=== PATIENT | female | born 1975 | race Two or more races ===

== ENCOUNTER 2025-05-10 11:28 | Emergency (ER) | payer MEDICAID ==
[~2025-05-10] VITALS: Ht 162.6 cm; Wt 91.3 kg
[2025-05-10 11:38] VITALS: TEMP 98.2
--- NOTE | 2025-05-10 12:01 | ED.PDOC ---
Musculoskeletal HPI Comments 49 year old female presents to the ED for the c/c of an Left Forearm Rash. Pt states that something "bit" her, but cannot recall exactly insect. Pt is noted to have a rash to the posterior aspect of the forearm, and spreads to the elbow at this time. No other associated symptoms or modifiers at this point in time. Chief Complaint: Upper Extremity Time Seen by MD: 11:57 Reviewed Notes: Nurses Notes, Medications, Allergies Allergies: Coded Allergies: NO KNOWN ALLERGIES (Unverified , 05/10/25) Home Meds Active Scripts Clindamycin Hcl (CLEOCIN) 150 Mg Cap, 1 CAP PO TID, #30 CAP Prov:ANKIT CASTILLO MD 05/10/25 Information Source: Patient Mode of Arrival: Ambulatory Location: Left Extremity Location: Elbow, Forearm Timing: Hours Prehospital treatment: None Severity: Mild Able to Move Extremity: Yes Bear Weight: Fully Pain: Mild Hand Dominance: Right Mechanism: None Circumstances: Spontaneous Onset of Symptoms: Spontaneous Symptoms: Swelling, Erythema, Warmth DVT Risk Factors: NONE Last Tetanus: Unknown Associated signs and symptoms: Other (Rash) Past Medical History PAST MEDICAL HISTORY: Denies Surgical History (Other): Nathanael Villavicencio COMMUTATOR ASSEMBLER History: No Pertinent COMMUTATOR ASSEMBLER History Family History Family History: Reviewed,noncontributory to illness, No family hx of Cancer, No family hx of DM, No family hx of Heart [place], No family hx of HTN, No family hx ofKidney [place], No family hx of Liver [place], No family hx of Lung [place], No family hx of Stroke Social History Smoker: Non-Smoker Alcohol: Denies ETOH Use Drugs: Denies Drug Use Lives In: Home Constitutional: denies: chills, diaphoresis, fatigue, fever, malaise, sweats, weakness, others EENTM: denies: blurred vision, double vision, ear bleeding, ear discharge, ear drainage, ear pain, ear ringing, eye pain, eye redness, hearing loss, mouth pain, mouth swelling, nasal discharge, nose bleeding, nose congestion, nose pain, photophobia, tearing, throat pain, throat swelling, voice changes, others Respiratory: denies: cough, hemoptysis, orthopnea, SOB at rest, shortness of breath, SOB with excertion, stridor, wheezing, others Cardiovascular: denies: chest pain, dizzy spells, diaphoresis, Dyspnea on exertion, edema, irregular heart beat, left arm pain, lightheadedness, palpitations, PND, syncope, others Gastrointestinal: denies: abdomen distended, abdominal pain, blood streaked bowels, constipated, diarrhea, dysphagia, difficulty swallowing, hematemesis, melena, nausea, poor appetite, poor fluid intake, rectal bleeding, rectal pain, vomiting, others Genitourinary: denies: abnormal vagina bleeding, burning, dyspareunia, dysuria, flank pain, frequency, hematuria, incontinence, pain, , vagina discharge, urgency, others Neurological: denies: dizziness, fainting, headache, left sided numbness, left sided weakness, numbness, paresthesia, pre-existing deficit, right sided numbness, right sided weakness, seizure, speech problems, tingling, tremors, weakness, others Musculoskeletal: denies: back pain, gout, joint pain, joint swelling, muscle pain, muscle stiffness, neck pain, others Integumetry: reports: rash; denies: bruises, change in color, change in hair/nails, dryness, laceration, lesions, lumps, wounds, others Allergic/Immunocompromised: denies: Difficulty Healing, Frequent Infections, Hives, Itching, others Hematologic/Lymphatic: denies: anemia, blood clots, easy bleeding, easy bruising, swollen glands, others Endocrine: denies: excessive hunger, excessive sweating, excessive thirst, excessive urination, flushing, intolerance to cold, intolerance to heat, unexplained weight gain, unexplained weight loss, others Psychiatric: denies: anxiety, bipolar disorder, depression, hopeless, panic disorder, schizophrenia, sleepless, suicidal, others All Other Systems: Reviewed and Negative Physical Exam General Appearance: Mild Distress HEENT: Normal ENT Inspection, Pharynx Normal, TMs Normal Neck: Full Range of Motion, Non-Tender, Normal, Normal Inspection Respiratory: Chest Non-Tender, Lungs Clear, No Accessory Muscle Use, No Respiratory Distress, Normal Breath Sounds Cardiovascular: No Edema, No JVD, No Murmur, No Gallop, Normal Peripheral Pulse s, Regular Rate/Rhythm Breast Exam: Deferred Gastrointestinal: No Organomegaly, Non Tender, No Pulsatile Mass, Normal Bowel Sounds, Soft Genitalia: Deferred Pelvic: Deferred Rectal: Deferred Extremities: No calf tenderness, Normal capillary refill, Normal inspection, Normal range of motion, Non-tender, No pedal edema Musculoskeletal : Apperance: Normal Neurologic: Alert, nutrition assistant II-XII nml as Tested, No Motor Deficits, No Sensory Deficits, Other (Tenderness to the left upper extremity) Cerebellar Function: Normal Reflexes: Normal Skin: Dry, Rash, Warm Lymphatic: No Adenopathy Was a procedure done? Was a procedure done?: No Differential Diagnosis EXT Differential Diagnosis: Cellulitis, Septic, Bursitis X-Ray, Labs, Meds, VS Vital Signs Date Time Temp Pulse Resp B/P (MAP) Pulse Ox O2 Delivery O2 Flow Rate FiO2 05/10/25 14:19 67 18 117/71 (86) 100 05/10/25 14:19 66 18 100 Room Air 05/10/25 12:18 Room Air* 0 21 05/10/25 11:38 98.2 89 18 128/66 (86) 98 98.2 Lab Test 05/10/25 13:22 05/10/25 11:46 Range/Units White Blood Count 7.0 4.4-10.8 10^3/uL Red Blood Count 4.70 4.0-5.20 10^6/uL Hemoglobin 12.6 12.2-16.2 g/dL Hematocrit 37.6 36.0-46.0 % Mean Corpuscular Volume 80.0 80.0-100.0 fL Mean Corpuscular Hemoglobin 26.9 L 28.0-32.0 pg Mean Corpuscular Hemoglobin Concent 33.7 32.0-36.0 g/dL Red Cell Distribution Width 15.7 H 11.8-14.3 % Platelet Count 193 140-450 10^3/uL Mean Platelet Volume 9.3 6.9-10.8 fL Neutrophils (%) (Auto) 63.6 37.0-80.0 % Lymphocytes (%) (Auto) 23.2 10.0-50.0 % Monocytes (%) (Auto) 11.6 0.0-12.0 % Eosinophils (%) (Auto) 0.7 0.0-7.0 % Basophils (%) (Auto) 0.9 0.0-2.0 % Neutrophils # (Auto) 4.4 1.6-8.6 10 ^3/uL Lymphocytes # (Auto) 1.6 0.4-5.4 10 ^3/uL Monocytes # (Auto) 0.8 0-1.3 10 ^3/uL Eosinophils # (Auto) 0.1 0-0.8 10 ^3/uL Basophils # (Auto) 0.1 0-0.2 10 ^3/uL Nucleated Red Blood Cells 0.1 % Erythrocyte Sedimentation Rate Pending Urine Color Light-yellow Yellow Urine Clarity Turbid H Clear Urine pH 6.5 5.0-9.0 Urine Specific [place] 1.009 1.001-1.035 Urine Protein Negative Negative Urine Ketones Negative Negative Urine Blood 3+ H Negative /uL Urine Nitrite Negative Negative Urine Bilirubin Negative Negative Urine Urobilinogen Normal Negative mg/dL Urine Leukocyte Esterase Negative Negative /uL Urine RBC 30 0 - 4 /hpf Urine Microscopic WBC 2 0-5 /HPF Urine Squamous Epithelial Cells Few <5 /hpf Urine Bacteria None seen None Seen /hpf Urine Glucose Normal Normal mg/dL Impression: No sonographic evidence of left upper extremity deep venous thrombosis. The urine test is negative for infection at this time The patient's CBC is within normal limits The patient is being started on Cleocin for a left arm cellulitis The patient will return to the emergency department's condition worsens The patient understands and agrees with the management. Images Reviewed?: Images reviewed and evaluated by me Time of 1ST Reevaluation: 12:28 Reevaluation 1ST: Unchanged Patient Education/Counseling: Diagnosis, Treatment, Prognosis, Need For Follow Up Family Education/Counseling: No Family Present Departure 1 Departure Time of Disposition: 14:37 Impression: Primary Impression: Left arm cellulitis Disposition: 01 HOME / SELF CARE / HOMELESS Condition: Fair e-Prescriptions Clindamycin Hcl (CLEOCIN) 150 Mg Cap 1 CAP PO TID, #30 CAP Prov: ANKIT CASTILLO MD 05/10/25 Discharged With: Self Critical Care Note Critical Care Time?: No Stability Stability form required: No Heart Score Heart Score: Heart Score Response (Comments) Value History N/A 0 EKG N/A 0 Age N/A 0 Risk Factors N/A 0 Troponin N/A 0 Total 0 I personally scribed for ANKIT CASTILLO MD ([email or web address]) on 05/10/25 at 12:01. Electronically submitted by Zak Gutierrez ([email or web address]). I personally scribed for ANKIT CASTILLO MD ([email or web address]) on 05/10/25 at 13:11. Electronically submitted by Zak Gutierrez ([email or web address]). ANKIT CASTILLO MD May 10, 2025 12:01
--- NOTE | 2025-05-10 13:09 | DVH ---
Procedure: US LT Upper DVT Study Date and Requested Time: 05/10/2025 12:39 PM History: swelling and redness Comparison: None Technique: Multiple high resolution grayscale images with and without compression obtained of the lef t upper extremity veins, including the internal jugular, subclavian, axillary, brachial, radial, and ulnar veins. Augmentation performed as indicated. Color and spectral doppler flow images obtained as indicated. Findings: No visible intraluminal venous thrombus. No evidence of incompressibility or abnormal color or spectr al Doppler flow visualized in the left upper extremity veins including the internal jugular, subclavi an, axillary, brachial, radial, and ulnar veins. Impression: No sonographic evidence of left upper extremity deep venous thrombosis.
[2025-05-10 13:15] LABS: Urine Bacteria None Seen /hpf (None Seen)
[2025-05-10 13:27] LABS: Urine Clarity Turbid (Clear); Urine Color Light-Yellow (Yellow); Urine Specific Gravity 1.009 (1.001-1.035)
[2025-05-10 13:28] LABS: Urine Blood 3+ /uL (Negative); Urine Protein, UAD Negative (Negative); Urine Squamous Epithelial Cell FEW /hpf (<5); Urine Urobilinogen Normal (Negative); Urine WBC 2 /HPF (0-5); Urine pH 6.5 (5.0-9.0)
[2025-05-10 13:42] LABS: Basophils # (auto) 0.1 10 ^3/uL (0-0.2); Eosinophils # (auto) 0.1 10 ^3/uL (0-0.8); Hemoglobin 12.6 g/dL (12.2-16.2); Lymphocytes # (auto) 1.6 10 ^3/uL (0.4-5.4); Mean Corpuscular Hemoglobin 26.9 pg (28.0-32.0); Monocytes # (auto) 0.8 10 ^3/uL (0-1.3); Nucleated Red Blood Cells % 0.1 %
[2025-05-10 13:44] LABS: Basophils % (auto) 0.9 % (0.0-2.0); Eosinophils % (auto) 0.7 % (0.0-7.0); Hematocrit 37.6 % (36.0-46.0); Lymphocytes % (auto) 23.2 % (10.0-50.0); Mean Corpuscular Hgb Conc. 33.7 g/dL (32.0-36.0); Monocytes % (auto) 11.6 % (0.0-12.0); Neutrophils # (auto) 4.4 10 ^3/uL (1.6-8.6); Neutrophils % (auto) 63.6 % (37.0-80.0); Platelet Count (auto) 193 10^3/uL (140-450); Red Cell Distribution Width 15.7 % (11.8-14.3)
[2025-05-10 14:19] VITALS: BP 117/71; PULSE 66; RESP 18; O2SAT 100
[2025-05-10] MEDS ORDERED: CLIN150C PO (14:39)
[2025-05-10 14:41] LABS: Erythrocyte Sedimentation Rate 53 mm/hr (0-20)
[2025-05-10] MEDS ORDERED: CLINDAMYCIN HCL 150 MG CAP PO ONE (14:45)
== END 2025-05-10 14:45 | disposition home or self-care (01) ==
LOC: ER 11:28
DX: L03.114 Cellulitis of left upper limb (principal)
CPT/HCPCS: 36415; 81001; 85025; 85652; 93971

== ENCOUNTER 2025-09-06 17:01 | Emergency (ER) | payer MEDICAID ==
[~2025-09-06] VITALS: Ht 162.6 cm; Wt 96.2 kg
[~2025-09-06 17:01] MED LIST: CLIN150C PO
[2025-09-06 18:57] LABS: Hematocrit 40.5 % (36.0-46.0); Hemoglobin 13.5 g/dL (12.2-16.2); Mean Corpuscular Hemoglobin 27.5 pg (28.0-32.0); Mean Corpuscular Volume 82.5 fL (80.0-100.0); Nucleated Red Blood Cells % 0.2 %
[2025-09-06 19:01] LABS: Chloride 105 mmol/L (98-107); Potassium 4.1 mmol/L (3.5-5.1); Sodium 144 mmol/L (136-145)
[2025-09-06 19:02] LABS: Anion Gap 9 (5-15); Calcium 9.6 mg/dL (8.7-10.4); Carbon Dioxide 30 mmol/L (20-31)
--- NOTE | 2025-09-06 19:06 | ED.PDOC ---
General HPI Comments Year old female who presents to the emergency department with one-week of left groin, left flank pain. Worsened with standing or riding in her vehicle. She denies associated dysuria, hematuria, fever, chills, nausea, vomiting or diarrhea. She denies any significant past medical history past surgical history includes tummy tuck. REVIEW OF SYSTEMS: General: No fever, no chills, or fatigue HEENT: No sore throat, no earache, no congestion, no neck pain. Cardiac: No chest pain. No palpitations. Lungs: No shortness of breath, no cough. GI: No nausea, no vomiting, no diarrhea, no constipation, no abdominal pain : No dysuria, frequency, or urgency. No hematuria. Left flank pain. Positive left groin pain. Musculoskeletal: No joint pain , no joint swelling, no extremity edema. Skin: No rash, no itching. Neuro: No headache, no dizziness, no weakness PHYSICAL EXAM: General: Awake, alert and oriented. No acute distress. Skin: Skin in warm, dry and intact without rashes or lesions. HEENT: The head is normocephalic and atraumatic. Conjunctivae are clear without exudates or hemorrhage. Sclera is non-icteric. Neck: Normal range of motion. No JVD. Cardiac: Regular rate Respiratory: No signs of respiratory distress. No Stridor. : Positive flank tenderness. No CVA tenderness bilaterally Neurological: The patient is awake, alert and oriented to person, place, and time with normal speech. Speech is clear. There is no facial asymmetry. Normal gait Psychiatric: Appropriate mood and affect. Good judgement and insight. Chief Complaint: Abdominal Pain Time Seen by MD: 18:14 Primary Care Provider: ? Allergies: Coded Allergies: NO KNOWN ALLERGIES (Unverified , 05/10/25) Home Meds Active Scripts Clindamycin Hcl (CLEOCIN) 150 Mg Cap, 1 CAP PO TID, #30 CAP Prov:ANKIT CASTILLO MD 05/10/25 Mode of Arrival: Ambulatory Past Medical History PAST MEDICAL HISTORY: Denies CHAIR History: No Pertinent CHAIR History Family History Family History: Reviewed,noncontributory to illness, No family hx of Cancer, No family hx of DM, No family hx of Heart [place], No family hx of HTN, No family hx ofKidney [place], No family hx of Liver [place], No family hx of Lung [place], No family hx of Stroke Social History Smoker: Non-Smoker Alcohol: Denies ETOH Use Drugs: Denies Drug Use Lives In: Home Was a procedure done? Was a procedure done?: No Differential Diagnosis Kidney stone (Female): Other (Differential diagnoses considered include but are not limited to pyelonephritis, UTI, nephrolithiasis, PUD, musculoskeletal pain, AAA, other) X-Ray, Labs, Meds, VS Vital Signs Date Time Temp Pulse Resp B/P (MAP) Pulse Ox O2 Delivery O2 Flow Rate FiO2 09/06/25 23:43 98 Room Air* 0 21 09/06/25 22:58 97.6 69 18 128/65 (86) 98 97.6 09/06/25 19:25 94 18 161/52 (88) 98 09/06/25 17:02 97.0 110 18 190/89 97 97.0 Lab Test 09/06/25 18:43 09/06/25 18:23 Range/Units White Blood Count 8.1 4.4-10.8 10^3/uL Red Blood Count 4.91 4.0-5.20 10^6/uL Hemoglobin 13.5 12.2-16.2 g/dL Hematocrit 40.5 36.0-46.0 % Mean Corpuscular Volume 82.5 80.0-100.0 fL Mean Corpuscular Hemoglobin 27.5 L 28.0-32.0 pg Mean Corpuscular Hemoglobin Concent 33.4 32.0-36.0 g/dL Red Cell Distribution Width 14.3 11.8-14.3 % Platelet Count 248 140-450 10^3/uL Mean Platelet Volume 9.7 6.9-10.8 fL Neutrophils (%) (Auto) 66.6 37.0-80.0 % Lymphocytes (%) (Auto) 19.8 10.0-50.0 % Monocytes (%) (Auto) 8.2 0.0-12.0 % Eosinophils (%) (Auto) 3.8 0.0-7.0 % Basophils (%) (Auto) 1.6 0.0-2.0 % Neutrophils # (Auto) 5.4 1.6-8.6 10 ^3/uL Lymphocytes # (Auto) 1.6 0.4-5.4 10 ^3/uL Monocytes # (Auto) 0.7 0-1.3 10 ^3/uL Eosinophils # (Auto) 0.3 0-0.8 10 ^3/uL Basophils # (Auto) 0.1 0-0.2 10 ^3/uL Nucleated Red Blood Cells 0.2 % Sodium Level 144 136-145 mmol/L Potassium Level 4.1 3.5-5.1 mmol/L Chloride Level 105 98-107 mmol/L Carbon Dioxide Level 30 20-31 mmol/L Anion Gap 9 5-15 Blood Urea Nitrogen 13 9-23 mg/dL Creatinine 0.68 0.550-1.02 mg/dL Glomerular Filtration Rate Calc 107 >90 mL/min BUN/Creatinine Ratio 19.1 10.0-20.0 Serum Glucose 106 74-106 mg/dL Calcium Level 9.6 8.7-10.4 mg/dL Urine Color Light-yellow Yellow Urine Clarity Clear Clear Urine pH 6.0 5.0-9.0 Urine Specific [place] 1.020 1.001-1.035 Urine Protein Negative Negative Urine Ketones Negative Negative Urine Blood Negative Negative /uL Urine Nitrite Negative Negative Urine Bilirubin Negative Negative Urine Urobilinogen Normal Negative mg/dL Urine Leukocyte Esterase Negative Negative /uL Urine RBC 1 0 - 4 /hpf Urine Microscopic WBC 1 0-5 /HPF Urine Squamous Epithelial Cells Few <5 /hpf Urine Bacteria None seen None Seen /hpf Urine Mucus Few None Seen Urine Glucose Normal Normal mg/dL Current Medications Medications (Trade) Dose Ordered Sig/Sharmin Route Start Time Stop Time Status Last Admin Ketorolac Tromethamine (Toradol Injection) 30 mg ONCE ONCE IM 09/06/25 18:45 09/06/25 18:46 DC 09/06/25 19:21 Time of 1ST Reevaluation: 19:06 Reevaluation 1ST: Unchanged Patient Education/Counseling: Need For Follow Up Family Education/Counseling: No Family Present SEPSIS Sepsis Screen Date sepsis recognized/suspect: Sep 06, 2025 Time Sepsis recognized/suspect: 1704 Recent Procedure: No On Antibiotic Therapy: No Respiratory Rate >20: No Heart Rate >90: No Temp<36 C (96.8 F) or >38.3 C: No SBP <90 or MAP <65 mmHG: No New Acute Mental Status Change: No Is the patient on CPAP, BIPAP,: No Physician Orders Pelvic (09/06/25 18:36) Kidney (09/06/25 18:36) Vital Signs Date Time Temp Pulse Resp B/P (MAP) Pulse Ox O2 Delivery O2 Flow Rate FiO2 09/06/25 23:43 98 Room Air* 0 21 09/06/25 22:58 97.6 69 18 128/65 (86) 98 97.6 09/06/25 19:25 94 18 161/52 (88) 98 09/06/25 17:02 97.0 110 18 190/89 97 97.0 Laboratory Tests Test 09/06/25 18:43 White Blood Count 8.1 10^3/uL (4.4-10.8) Medications Medications Dose Ordered Sig/Sharmin Route Start Time Stop Time Status Last Admin Dose Admin Ketorolac Tromethamine 30 mg ONCE ONCE IM 09/06/25 18:45 09/06/25 18:46 DC 09/06/25 19:21 Departure 1 Departure Time of Disposition: 19:05 Impression: Primary Impression: Left groin pain Additional Impression: Left flank pain Disposition: 01 HOME / SELF CARE / HOMELESS Condition: Stable Additional Instructions: ED DISCHARGE INSTRUCTIONS Instructions: Please read all instructions provided in this packet carefully. Although you have been discharged from the Emergency Department, this does not mean that you have a "clean bill of health". No definitive diagnosis for your symptoms has been made today. It is possible that you are in the process of developing a serious illness. This is why you must return to the ED without fail if any new or worsening symptoms (especially if your symptoms include chest pain, trouble breathing, abdominal pain, fever, headache, confusion, trouble seeing, or trouble walking) It is also very important that you see a primary care provider (PCP) within the next 3-5 days to follow up. If you are unable to get an appointment, return to the ED for re-evaluation. A Copy of your ultrasound report is included below. Please take this your primary care provider at the next visit for follow up of abnormal findings, possible fluid back up into the left kidney. Pelvic Pain: Care Instructions Table of Contents Overview How can you care for yourself at home? When should you call your doctor? Credits Overview Female pelvic organs Pelvic pain, or pain in the lower belly, can have many causes. Often pelvic pain is not serious and gets better in a few days. If your pain continues or gets wo rse, you may need tests and treatment. Tell your doctor about any new symptoms. These may be signs of a serious problem. Follow-up care is a alejandre part of your treatment and safety. Be sure to make and go to all appointments, and call your doctor if you are having problems. It's also a good idea to know your test results and keep a list of the medicines you take. How can you care for yourself at home? Rest until you feel better. Lie down, and raise your legs by placing a pillow under your knees. Drink plenty of fluids. You may find that small, frequent sips are easier on your stomach than if you drink a lot at once. Avoid drinks with carbonation or caffeine, such as soda pop, tea, or coffee. Try eating several small meals instead of 2 or 3 large ones. Eat mild foods, such as rice, dry toast or crackers, bananas, and applesauce. Avoid fatty and spicy foods, other fruits, and alcohol until 48 hours after your symptoms have gone away. Take an nwgw-frs-nzqatmi pain medicine, such as acetaminophen (Tylenol), ibupr ofen (Advil, Motrin), or naproxen (Aleve). Read and follow all instructions on the label. Do not take two or more pain medicines at the same time unless the doctor told you to. Many pain medicines have acetaminophen, which is Tylenol. Too much acetaminophen (Tylenol) can be harmful. You can put a heating pad, a warm cloth, or moist heat on your belly to relieve pain. When should you call your doctor? Call 911 anytime you think you may need emergency care. For example, call if: You passed out (lost consciousness). Contact your doctor now or seek immediate medical care if: You have a new or higher fever. You have unusual vaginal bleeding. You have new or worse belly or pelvic pain. You have vaginal discharge that has increased in amount or smells bad. You are dizzy or lightheaded, or you feel like you may faint. You have symptoms of sepsis, such as: Shortness of breath. Feeling very sick. Severe pain. A fast heart rate. Cool, pale, or clammy skin. Feeling confused. Feeling very sleepy, or you are hard to wake up. Watch closely for changes in your health, and be sure to contact your doctor if: You do not get better as expected. Credits for Pelvic Pain: Care Instructions Current as of: March 22, 2025 Author: [employer] Staff Clinical Review Board All [employer] education is reviewed by a team that includes physicians, nurses, advanced practitioners, registered dieticians, and other healthcare professionals. ULTRASOUND REPORT: CLINICAL HISTORY: Left pelvic/flank pain. Left Kidney, r/o stone TECHNIQUE: Complete ultrasound exam of the kidneys and bladder was performed. COMPARISON: None FINDINGS: The right kidney has normal echogenicity and measures 10 cm. There is no focal parenchymal abnormality or evidence for stone. There is no hydronephrosis. The left kidney has normal echogenicity and measures 10.7 cm. There is no focal parenchymal abnormality or evidence for stone. There is mild pelvicaliectasis. The bladder is not well distended and therefore not well evaluated. IMPRESSION: Mild left renal pelvicaliectasis. Comments MDM: Patient well-appearing, nontoxic. Advised prompt follow-up with PCP, return to the ED with any new, worsening or concerning symptoms. I reviewed the following notes from the pt's past medical encounters: N/A The following tests were ordered, and results were reviewed by me: (See diagnostic results section) The following test were independently interpreted by me: N/A Additional information was gathered from interviewing the following independent historians: N/A I reviewed and agreed with the following test results read by other providers: N/A I discussed treatments and results with patient Decision regarding hospitalization or escalation of hospital level of care: Risks and benefits of admission for further treatment of patient's condition was considered however due to patient's stable condition patient will be discharged to follow up closely or return to care for worsening of condition or inability to follow up. Critical Care Note Critical Care Time?: No Stability Stability form required: No I personally scribed for ELIZABETH LEWIS MD ([email or web address]) on 09/06/25 at 23:22. Electronically submitted by Eladio De León ([email or web address]). ELIZABETH LEWIS MD Sep 06, 2025 19:06
[2025-09-06 19:07] LABS: BUN/Creatinine Ratio 19.1 (10.0-20.0); Blood Urea Nitrogen 13 mg/dL (9-23); Glucose 106 mg/dL (74-106)
[2025-09-06] MEDS: KETOROLAC TROMETH 30 MG/ML 1ML VIAL IM ONE (19:21)
--- NOTE | 2025-09-06 19:22 | DVH ---
CLINICAL HISTORY: Left pelvic/flank pain. Left Kidney, r/o stone TECHNIQUE: Complete ultrasound exam of the kidneys and bladder was performed. COMPARISON: None FINDINGS: The right kidney has normal echogenicity and measures 10 cm. There is no focal parenchymal abnormalit y or evidence for stone. There is no hydronephrosis. The left kidney has normal echogenicity and measures 10.7 cm. There is no focal parenchymal abnormal ity or evidence for stone. There is mild pelvicaliectasis. The bladder is not well distended and therefore not well evaluated. IMPRESSION: Mild left renal pelvicaliectasis.
--- NOTE | 2025-09-06 19:34 | DVH ---
EXAM: US PELVIC HISTORY: Left pelvic/flank pain COMPARISON: None TECHNIQUE: Transabdominal and transvaginal imaging was utilized. Grayscale and color doppler evaluati on. Images were stored in the patient's permanent medical record. FINDINGS: UTERUS: 7.3 x 3.2 x 4.6 cm. Endometrial stripe: 3 cm. IUD in the endometrial canal. Uterus appears he terogeneous RIGHT OVARY: 2.4 x 1.3 x 1.8 cm.Normal vascularity. No suspicious masses or cysts. LEFT OVARY: 1.9 x 1.1 x 1.6 cm. Normal vascularity. No suspicious masses or cysts. OTHER: No free fluid is identified. IMPRESSION: 1. Unremarkable pelvic ultrasound.
[2025-09-06 21:08] LABS: Urine Protein, UAD Negative (Negative)
[2025-09-06 22:58] VITALS: BP 128/65; PULSE 69; RESP 18; TEMP 97.6
[2025-09-06 23:43] VITALS: O2SAT 98
== END 2025-09-06 23:44 | disposition home or self-care (01) ==
LOC: ER 17:01
DX: R10.32 Left lower quadrant pain (principal); R10.A2 Flank pain, left side; R10.30 Lower abdominal pain, unspecified; R10.9 Unspecified abdominal pain
CPT/HCPCS: 36415; 76775; 76856; 80048; 81001; 85025; 96372; 99285; J1885